=== PATIENT | female | born 1995 | race Caucasian/White ===

== ENCOUNTER 2022-05-10 12:24 | Emergency (ER) | payer SELFPAY ==
[2022-05-10 12:42] VITALS: BP 101/60; PULSE 64; RESP 16; TEMP 36.9; O2SAT 99; BMI 23.4
[2022-05-10 13:09] VITALS: BP 101/60; PULSE 64; RESP 16; TEMP 36.9; O2SAT 99; BMI 23.6
--- NOTE | 2022-05-10 13:25 | EXP.UTC ---
Discharge Plan Disposition Patient Disposition: Home, Self-Care Condition: Good Prescriptions Prescriptions: New cephalexin 500 mg capsule 500 mg PO QID 7 Days Qty: 28 0RF Activity Restrictions/Add. Instructions Additional Instructions/Restrictions: Keep the wound clean and dry. Keep a dressing on it if you are going to be getting it dirty. Watch the wound for signs of infection, such as redness, swelling, drainage, fever. etc. Take tylenol or ibuprofen for pain. Follow up with your regular doctor. Return in 10 days to have the sutures removed. GO TO THE ER FOR ANY WORSENING SYMPTOMS OR CONCERNS. Clinical Impressions Clinical Impression: Laceration of left hand Instructions Patient Instructions: DI for Laceration Repair, DI for Laceration Repair -- Simple Discharge ED Provider: Jerad Dennis [facility] General Stated complaint: AO 05/10 burn to left hand Mode of Arrival: Ambulatory Source of Information: Patient Limitations: Language Barrier Time Seen by Provider: 05/10/22 13:23 Description of Symptoms (Recalled from Triage Doc. 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 She denies any difficulty moving her fingers. She denies any numbness. Related Data Previous Rx's Medication Instructions Recorded cephalexin 500 mg capsule 500 mg PO QID 7 days #28 caps 05/10/22 Allergies Allergy/AdvReac Type Severity Reaction Status Date / Time No Known Allergies Allergy Verified 05/10/22 13:11 Worker's Comp Is this a Worker's Comp case?: No [facility] Disclaimer: The information contained in this section may have been updated after the patient was seen, as this information can be updated by other users. Social History Smoking Status: Never smoker alcohol intake: never current occupational status: employed Travel in the last 8 weeks: None ROS Obtained: Yes All systems reviewed & no additional complaints except as documented Constitutional Constitutional: Denies chills and Denies fever(s) Eyes Eyes: Denies eye discharge ENT Ears, Nose, Mouth, and Throat: Denies dizziness, Denies otalgia and Denies sore throat Cardiovascular Cardiovascular: Denies chest pain Respiratory Respiratory: Denies shortness of breath, Denies chest congestion, Denies cough, Denies stridor and Denies wheezing Gastrointestinal Gastrointestingal: Denies nausea or vomiting Musculoskeletal Musculoskeletal: Reports system reviewed and no additional complaints, except as documented and Denies arthralgias Integumentary/Breasts Skin/Breast: Reports as per HPI Neurologic Neurologic: Denies dizziness and Denies paresthesias Allergic/Immunologic Allergic/Immunologic: Denies wheezing Physical Exam General General appearance: alert and in no apparent distress Head Head exam: atraumatic, normocephalic and normal inspection Eye Eye exam: Present normal appearance, PERRL and EOMI ENT ENT exam: Present normal exam, normal oropharynx, mucous membranes moist, TM's normal bilaterally and normal external ear exam Neck Neck exam: Present normal inspection, full ROM and trachea midline; Absent meningismus or lymphadenopathy Chest Chest inspection: Present normal inspection and symmetric chest wall rise; Absent tenderness Respiratory Respiratory exam: Present normal lung sounds bilaterally; Absent respiratory distress Cardiovascular Cardiovascular exam: Present regular rate and normal rhythm; Absent JVD Abdominal Exam Abdominal exam: Present soft and normal bowel sounds; Absent distention, tenderness or guar
[2022-05-10 14:35] VITALS: BP 101/60; PULSE 64; RESP 16; TEMP 36.9
== END 2022-05-10 14:37 | disposition home or self-care (01) ==
PROVIDERS: Emergency Provider Nurse Practitioner Family
DX: S61.412A Laceration without foreign body of left hand, initial encounter (principal); W26.0XXA Contact with knife, initial encounter
CPT/HCPCS: 12001; 99213; 99214; G0463

== ENCOUNTER 2023-05-20 14:00 | Outpatient (CLI) | payer SELFPAY ==
--- NOTE | 2023-05-20 14:20 | US_ITS ---
PROCEDURE: US TRANSVAGINAL CLINICAL INDICATION: RLQ PAIN COMPARISON: No exams were available for comparison FINDINGS: Transvaginal sonographic images of the pelvis were obtained. UTERUS: 8.0cm x 5.0cmx 4.4cm anteverted with a combined endometrial thickness of 14.3mm. A scar is seen. There is a small amount of fluid in the upper segment of the cervix/ lower uterine segment. LEFT OVARY: 3.1cmx2.1cmx1.3cm with a volume of 4.2ml. The left ovary sits posterior to the uterus. There are several small follicles. RIGHT OVARY: 3.0cmx 1.7cmx1.6cm with a volume of 4.2ml. There are several small follicles. Both ovaries are seen and appear normal. Doppler flow to both ovaries are seen. There is no fluid in the cul-de-sac. IMPRESSION: 1. Anteverted uterus normal in shape and size. The endometrium is the upper limits of normal thickness. 2. The endometrium appears to have areas increased echogenicity of uncertain significance. 3. The left ovary sits posterior to the uterus. There are several small follicles. 4. The right ovary is seen and appears normal with a few small follicles. 5. No fluid in the cul-de-sac. Dictated by: Leeroy Bañuelos MD 05/20/2023 16:07 Leeroy Bañuelos MD in OV 05/20/2023 16:07
== END 2023-05-20 23:59 ==
LOC: RAD 14:01
PROVIDERS: PCP Nurse Practitioner Family; Visit Provider Nurse Practitioner Family
DX: R10.31 Right lower quadrant pain (principal)
CPT/HCPCS: 76830